=== PATIENT | male | born 1990 | race Hispanic/Latino ===

== ENCOUNTER 2023-11-24 15:22 | Emergency (ER) | payer SELFPAY ==
[~2023-11-24] VITALS: Ht 167.6 cm; Wt 78.0 kg
[2023-11-24 16:23] VITALS: BP 158/80
[2023-11-24 17:37] LABS: BASO% 0.1 % (0-3); EOS% 1.6 % (0-8); HEMATOCRIT 44.6 % (39.0-50.0); HEMOGLOBIN 15.1 g/dl (14.0-18.0); IMMATURE GRANULOCYTES 0.1 % (0.0-5.0); LYMPH% 29.4 % (15-41); MEAN CELL VOLUME 81.2 fL CALC (80.0-100.0); MEAN CORPUSCULAR HGB 27.5 pG CALC (26.0-32.0); MEAN CORPUSCULAR HGB CONC 33.9 g/dL CAL (32.0-36.0); MONO% 9.7 % (2-13); NEUT# 4.87 thou/uL (1.82-7.42); NEUT% 59.1 % (42-76); RED BLOOD COUNT 5.49 mill/uL (4.70-6.10); RED CELL DISTRI WIDTH 12.5 % (11.5-15.5)
[2023-11-24 17:51] LABS: ALBUMIN 4.5 g/dL (3.2-5.0); ALKALINE PHOSPHATASE 182 u/l (38-126); ANION GAP 17 (6-22 (CALC)); BUN 12 mg/dL (9-20); BUN/CREATININE RATIO 26 (12-20 (CALC)); CARBON DIOXIDE 21 mmol/l (22-30); CHLORIDE 103 mmol/l (95-108); CREATININE 0.5 mg/dL (0.7-1.3); GFR FOR AFR.AMER. > 60 ML/MIN (>=60 (CALC)); GFR OTHER RACES > 60 ML/MIN (>=60 (CALC)); SGOT/AST 43 u/l (17-59); SODIUM 137 mmol/l (137-146)
[2023-11-24 18:01] VITALS: BP 158/80
== END 2023-11-24 18:01 | disposition home or self-care (01) | DRG 395 ==
LOC: ED 15:22 → EDBD 17:17 → ED 17:17
PROVIDERS: Emergency Medicine
DX: K40.90 Unilateral inguinal hernia, without obstruction or gangrene, not specified as recurrent (principal); Z20.822 Contact with and (suspected) exposure to COVID-19

== ENCOUNTER 2023-11-26 15:45 | Emergency (ER) | payer SELFPAY ==
[~2023-11-26] VITALS: Ht 167.6 cm; Wt 58.0 kg
[2023-11-26 16:32] VITALS: BP 135/73
[2023-11-26 16:58] LABS: BASO% 0.3 % (0-3); EOS% 2.2 % (0-8); HEMATOCRIT 39.4 % (39.0-50.0); HEMOGLOBIN 13.5 g/dl (14.0-18.0); LYMPH% 41.7 % (15-41); MEAN CELL VOLUME 81.6 fL CALC (80.0-100.0); MEAN CORPUSCULAR HGB CONC 34.3 g/dL CAL (32.0-36.0); MONO% 10.1 % (2-13); NEUT# 2.67 thou/uL (1.82-7.42); NEUT% 45.7 % (42-76); RED BLOOD COUNT 4.83 mill/uL (4.70-6.10); RED CELL DISTRI WIDTH 12.6 % (11.5-15.5)
[2023-11-26 17:01] VITALS: BP 162/61
[2023-11-26 17:08] LABS: ALKALINE PHOSPHATASE 163 u/l (38-126); ANION GAP 16 (6-22 (CALC)); BILIRUBIN, TOTAL 0.6 mg/dL (0.2-1.3); BUN 12 mg/dL (9-20); BUN/CREATININE RATIO 25 (12-20 (CALC)); CARBON DIOXIDE 23 mmol/l (22-30); CHLORIDE 105 mmol/l (95-108); CREATININE 0.5 mg/dL (0.7-1.3); GFR FOR AFR.AMER. > 60 ML/MIN (>=60 (CALC)); GFR OTHER RACES > 60 ML/MIN (>=60 (CALC)); POTASSIUM 4.1 mmol/l (3.5-5.1); SGOT/AST 39 u/l (17-59); SODIUM 139 mmol/l (137-146); TOTAL PROTEIN 7.2 g/dL (6.3-8.2)
[2023-11-26 18:57] VITALS: BP 162/61
== END 2023-11-26 19:05 | disposition home or self-care (01) | DRG 395 ==
LOC: ED 15:45
PROVIDERS: Emergency Medicine
DX: K40.90 Unilateral inguinal hernia, without obstruction or gangrene, not specified as recurrent (principal)
CPT/HCPCS: Q9967

== ENCOUNTER 2023-11-26 19:46 | Emergency (ER) | payer SELFPAY | END 2023-11-26 20:30 | disposition left against medical advice (07) | DRG 951 | LOC: ED 19:46 → LWOBS 20:30 | DX: Z53.21 Procedure and treatment not carried out due to patient leaving prior to being seen by health care provider (principal) ==

== ENCOUNTER 2023-11-26 22:09 | Emergency (ER) | payer SELFPAY ==
[~2023-11-26] VITALS: Ht 167.6 cm; Wt 50.0 kg
[2023-11-27 03:31] VITALS: BP 145/77
== END 2023-11-27 03:32 | DRG 395 ==
LOC: ED 22:09
DX: K40.90 Unilateral inguinal hernia, without obstruction or gangrene, not specified as recurrent (principal)
CPT/HCPCS: Q9967